=== PATIENT | female | born 1975 | race Caucasian/White ===

== ENCOUNTER 2016-09-22 13:07 | Emergency (ER) | payer MEDICARE, OTHER ==
[~2016-09-22 13:07] MED LIST: CLOZ100T PO; DIAZ10TA PO; LAMO200T3 PO; LORA10TA3 PO; VENL75CA PO
[2016-09-22 14:38] VITALS: BP 128/78
--- NOTE | 2016-09-22 15:35 | ED.ADGEN ---
Past History Past Medical History: Seizure, Other Past Surgical History: Other Alcohol Use: Occasionally Drug Use: None Social History Narrative: THC USE IN PAST NONE RECENTLY Adult General Chief Complaint Chief Complaint Seizure episode [facility] Patient is a 40-year-old female seizure disorder presents with witnessed seizure episode at [facility] earlier today. Patient's is taking Lamictal twice daily and is complaint with treatment. She had brief tonic-clonic seizure lasting up to to 3 minutes with postictal period resolving prior to ED arrival. Denies headache, change in vision, tongue laceration or urinary or bowel incontinence. No recent medications change, missed medications or illnesses. Patient states she has occasional breakthrough seizure brief few months. Patient 's neurologist is Dr. Oakley. Review of Systems Review of Systems ROS as per [facility] Allergies Allergies Allergies Coded Allergies Type Severity Reaction Last Updated Verified No Known Drug Allergies 07/26/14 No Physical Exam Physical Exam Constitutional: Well developed, well nourished, no acute distress, non-toxic appearance. HENT: Normocephalic, atraumatic, bilateral external ears normal, oropharynx moist, no oral exudates, nose normal. Eyes: PERRLA, EOMI, conjunctiva normal, no discharge. Neck: Normal range of motion, no tenderness. Cardiovascular:Heart rate regular rhythm, no murmur. Lungs & Thorax: Bilateral breath sounds clear to auscultation. Abdomen: Bowel sounds normal, soft, no tenderness. Skin: Warm, dry, no erythema, no rash. Back: No tenderness. Extremities: No tenderness. Neurologic: Alert and oriented X 3, normal motor function, normal sensory function, no focal deficits noted. Psychologic: Affect normal, judgement normal, mood normal. [] Current Patient Data Vital Signs Vital Signs Date Time Temp Pulse Resp B/P Pulse Ox O2 Delivery O2 Flow Rate FiO2 09/22/16 13:07 98.4 106 18 96 Room Air Lab Results Laboratory Tests Test 09/22/16 13:39 Glucose (Fingerstick) 171mg/dL (70-99) H EKG EKG [] Radiology/Procedures Radiology/Procedures [] Impressions: Breakthrough seizure Course & Med Decision Making Course & Med Decision Making Pertinent Labs and Imaging studies reviewed. (See chart for details) [Patient observed in the ED without complaint. Sendoff Lamictal order place. Patient to follow-up with Dr. Oakley per lab results and further management. Return precautions reviewed.] Final Impression Final Impression [1. Breakthrough seizure] Problems: Dragon Disclaimer Dragon Disclaimer This chart was dictated in whole or in part using Voice Recognition software in a busy, high-work load, and often noisy Emergency Department environment. It may contain unintended and wholly unrecognized errors or omissions. NOÉ DONG DO Sep 22, 2016 14:24
[2016-10-06] MEDS ORDERED: LAMO100T5 PO (13:24)
== END 2016-09-22 14:45 | disposition home or self-care (01) ==
LOC: ER 13:07
DX: G40.909 Epilepsy, unspecified, not intractable, without status epilepticus (principal)
CPT/HCPCS: 36415; 80175; 82947; 99283; 99284

== ENCOUNTER 2018-11-10 10:59 | Emergency (ER) | payer MEDICARE, OTHER ==
[~2018-11-10] VITALS: Ht 162.6 cm; Wt 83.9 kg
[~2018-11-10 10:59] MED LIST changes: +LAMO100T5 PO
[2018-11-10 11:33] LABS: BASO # 0.1 x10^3/uL (0.0-0.2); BASO % 1 % (0-3); EOS % 0 % (0-3); HEMOGLOBIN 14.6 g/dL (12.0-15.5); LYMPH # 2.2 x10^3/uL (1.0-4.8); LYMPH % 25 % (24-48); MEAN CORPUSCULAR HEMOGLOBIN 31 pg (25-35); MEAN CORPUSCULAR HGB CONC 35 g/dL (31-37); MEAN CORPUSCULAR VOLUME 90 fL (79-100); MONO # 0.7 x10^3/uL (0.0-1.1); MONO % 8 % (0-9); NEUT # 5.7 x10^3uL (1.8-7.7); NEUT % 67 % (31-73); PLATELET COUNT 230 x10^3/uL (140-400); RED BLOOD COUNT 4.69 x10^6/uL (3.50-5.40); WHITE BLOOD COUNT 8.5 x10^3/uL (4.0-11.0)
[2018-11-10 11:46] LABS: ALBUMIN 3.8 g/dL (3.4-5.0); ALBUMIN/GLOBULIN RATIO 1.2 (1.0-1.7); CREATININE 0.8 mg/dL (0.6-1.0); GFR 78.3; TOTAL BILIRUBIN 0.2 mg/dL (0.2-1.0); TOTAL PROTEIN 6.9 g/dL (6.4-8.2)
[2018-11-10 12:28] LABS: BARBITURATES NEG (NEG); BENZODIAZEPINES NEG (NEG); CANNABINOIDS NEG (NEG); COCAINE NEG (NEG); METHADONE NEG (NEG); OPIATES NEG (NEG); PHENCYCLIDINE NEG (NEG)
[2018-11-10 12:35] VITALS: BP 118/86
--- NOTE | 2018-11-10 12:42 | PHYS DOC ---
Past History Past Medical History: Anxiety, Seizure, Schizophrenia Past Surgical History: Other Smoking: Cigarettes, Less than 1pk/day Additional Smoking Information: 09/15 PPD Alcohol Use: None Drug Use: None Adult General Chief Complaint Chief Complaint: SEIZURE HPI HPI Patient is a 43 year old female who brought in by EMS because of his seizure. Patient states she has had history of seizure and taking Lamictal and was admitted in [facility] 2 weeks ago because of suicidal ideation and had increase of dose of Effexor and Neurontin without injury dose of Lamictal. Patient states since discharge from hospital she didn't feel good and today while she was at [facility], had a seizure like her previous episode of seizure that last about 1 minute. Patient states her last seizure was about 2 years ago. Patient denies missing his medication, using drugs or alcohol, lack of sleep, suicidal and homicidal ideation. Review of Systems Review of Systems Constitutional: Denies fever or chills [] Eyes: Denies change in visual acuity, redness, or eye pain [] HENT: Denies nasal congestion or sore throat [] Respiratory: Denies cough or shortness of breath [] Cardiovascular: No additional information not addressed in HPI [] GI: Denies abdominal pain, nausea, vomiting, bloody stools or diarrhea [] : Denies dysuria or hematuria [] Musculoskeletal: Denies back pain or joint pain [] Integument: Denies rash or skin lesions [] Neurologic: Denies headache, focal weakness or sensory changes [] Endocrine: Denies polyuria or polydipsia [] All other systems were reviewed and found to be within normal limits, except as documented in this note. Allergies Allergies Allergies Coded Allergies Type Severity Reaction Last Updated Verified No Known Drug Allergies 07/26/14 No Physical Exam Physical Exam Constitutional: Well developed, well nourished, mild distress, non-toxic appearance. [] HENT: Normocephalic, atraumatic, oropharynx moist, no oral exudates, nose normal. [] Eyes: PERRLA, EOMI, conjunctiva normal, no discharge. [] Neck: Normal range of motion, no tenderness, supple, no stridor. [] Cardiovascular:Heart rate regular rhythm, no murmur [] Lungs & Thorax: Bilateral breath sounds clear to auscultation [] Abdomen: Bowel sounds normal, soft, no tenderness, no masses, no pulsatile masses. [] Skin: Warm, dry, no erythema, no rash. [] Back: No tenderness, no CVA tenderness. [] Extremities: No tenderness, no cyanosis, no clubbing, ROM intact, no edema. [] Neurologic: Alert and oriented X 3, normal motor function, normal sensory function, no focal deficits noted. [] Psychologic: Affect depress, judgement normal, mood normal. [] Current Patient Data Vital Signs Vital Signs Date Time Temp Pulse Resp B/P (MAP) Pulse Ox O2 Delivery O2 Flow Rate FiO2 11/10/18 11:06 98.0 78 20 96 Room Air Lab Results Laboratory Tests Test 11/10/18 11:19 White Blood Count 8.5 x10^3/uL (4.0-11.0) Red Blood Count 4.69 x10^6/uL (3.50-5.40) Hemoglobin 14.6 g/dL (12.0-15.5) Hematocrit 42.0 % (36.0-47.0) Mean Corpuscular Volume 90 fL (79-100) Mean Corpuscular Hemoglobin 31 pg (25-35) Mean Corpuscular Hemoglobin Concent 35 g/dL (31-37) Red Cell Distribution Width 13.0 % (11.5-14.5) Platelet Count 230 x10^3/uL (140-400) Neutrophils (%) (Auto) 67 % (31-73) Lymphocytes (%) (Auto) 25 % (24-48) Monocytes (%) (Auto) 8 % (0-9) Eosinophils (%) (Auto) 0 % (0-3) Basophils (%) (Auto) 1 % (0-3) Neutrophils # (Auto) 5.7 x10^3uL (1.8-7.7) Lymphocytes # (Auto) 2.2 x10^3/uL (1.0-4.8) Monocytes # (Auto) 0.7 x10^3/uL (0.0-1.1) Eosinophils # (Auto) 0.0 x10^3/uL (0.0-0.7) Basophils # (Auto) 0.1 x10^3/uL (0.0-0.2) Sodium Level 141 mmol/L (136-145) Potassium Level 4.0 mmol/L (3.5-5.1) Chloride Level 104 mmol/L (98-107) Carbon Dioxide Level 30 mmol/L (21-32) Anion Gap 7 (6-14) Blood Urea Nitrogen 14 mg/dL (7-20) Creatinine 0.8 mg/dL (0.6-1.0) Estimated GFR (Cockcroft-Gault) 78.3 BUN/Creatinine Ratio 18 (6-20) Glucose Level 105 mg/dL (70-99) H Calcium Level 9.0 mg/dL (8.5-10.1) Total Bilirubin 0.2 mg/dL (0.2-1.0) Aspartate Amino Transferase (AST) 21 U/L (15-37) Alanine Aminotransferase (ALT) 39 U/L (14-59) Alkaline Phosphatase 75 U/L (46-116) Total Protein 6.9 g/dL (6.4-8.2) Albumin 3.8 g/dL (3.4-5.0) Albumin/Globulin Ratio 1.2 (1.0-1.7) EKG EKG [] Radiology/Procedures Radiology/Procedures [] Course & Med Decision Making Course & Med Decision Making Pertinent Labs studies reviewed. (See chart for details) Evaluation of patient in ER showed 43-year-old female patient with history of seizure brought in by EMS because of his seizure that happened at [facility] this morning. Last episode of seizure was about 2 years ago. Patient had unremarkable physical exam and labs. Patient instructed to follow-up with Dr. Hartman her neurologist in one or 2 days for adjustment of doses of her medication. Dragon Disclaimer Dragon Disclaimer This electronic medical record was generated, in whole or in part, using a voice recognition dictation system. Departure Departure: Impression: Primary Impression: Breakthrough seizure Additional Impressions: Seizure disorder Tobacco abuse Tobacco abuse counseling Disposition: 01 HOME, SELF-CARE (at 1240) Condition: STABLE Referrals: ROSY HARTMAN MD (PCP) Patient Instructions: Seizure, Adult, Smoking Cessation, Tips For Success Additional Instructions: Follow-up with Dr. Hartman in one or 2 days Continue current medication Return to ER if not getting better Problem Qualifiers IVON HOOKS MD Nov 10, 2018 12:42
[2018-11-10 14:31] LABS: AMPHETAMINE/METHAMPHETAMINE NEG (NEG)
[2018-11-10 15:03] LABS: BILIRUBIN,URINE NEG (NEG); CLARITY,URINE CLEAR; COLOR,URINE YELLOW; GLUCOSE,URINE NEG (NEG)
[2018-11-10 15:04] LABS: BACTERIA,URINE FEW /HPF (0-FEW); NITRITE,URINE NEG (NEG); RBC,URINE 0 /HPF (0-2); SQUAMOUS EPITHELIAL CELL,UR MOD /LPF; UROBILINOGEN,URINE 0.2 mg/dL (0.2 mg/dL); WBC,URINE 0 /HPF (0-4)
== END 2018-11-10 12:43 | disposition home or self-care (01) ==
LOC: ER 10:59
DX: G40.909 Epilepsy, unspecified, not intractable, without status epilepticus (principal); F41.9 Anxiety disorder, unspecified; F20.9 Schizophrenia, unspecified; F17.210 Nicotine dependence, cigarettes, uncomplicated; Z71.6 Tobacco abuse counseling
CPT/HCPCS: 36415; 80053; 80307; 81001; 85025; 99283

== ENCOUNTER 2019-02-25 00:05 | Emergency (ER) | payer MEDICARE, OTHER ==
[~2019-02-25] VITALS: Ht 162.6 cm; Wt 76.1 kg
--- NOTE | 2019-02-25 00:14 | PHYS DOC ---
Past History Past Medical History: Anxiety, Seizure, Schizophrenia Past Surgical History: Other Smoking: Cigarettes, Less than 1pk/day Alcohol Use: None Drug Use: None Adult General HPI HPI Patient is a 43-year-old female who presents to the emergency department via EMS. She states she was on a bus, [place], when she had 3 seizures [id number], did regain consciousness between each episode. Along the seizure lasted about a minute, the shortest about 20 seconds. EMS reported the patient was somewhat disoriented upon their arrival but has had improving during transportation. The patient states that she does have a seizure history and takes Lamictal, she states she has a history of schizoaffective disorder and depression and anxiety, and does admit to being under a lot of stress recently. She states that she is uncertain if she has true epilepsy or pseudoseizures. She denies any numbness, vision changes, headache, dizziness or lightheadedness. She did not bite her tongue or lose urinary continence. She did not fall or otherwise injure herself. There are no alleviating or exacerbating factors to her symptoms. Review of Systems Review of Systems Constitutional: Denies fever or chills [] Eyes: Denies change in visual acuity, redness, or eye pain [] HENT: Denies nasal congestion or sore throat [] Respiratory: Denies cough or shortness of breath [] Cardiovascular: The patient denies any shortness of breath, chest pain, palpitations, or orthopnea [] GI: Denies abdominal pain, nausea, vomiting, bloody stools or diarrhea [] : Denies dysuria or hematuria [] Musculoskeletal: Denies back pain or joint pain [] Integument: Denies rash or skin lesions [] Neurologic: Denies headache, focal weakness or sensory changes [] Endocrine: Denies polyuria or polydipsia [] All other systems were reviewed and found to be within normal limits, except as documented in this note. Current Medications Current Medications Current Medications Medications (Trade) Dose Ordered Sig/Dillon Start Time Stop Time Status Last Admin Dose Admin Lorazepam (Ativan Inj) 0.5 mg 1X ONCE 02/25/19 00:15 02/25/19 00:16 UNV Allergies Allergies Allergies Coded Allergies Type Severity Reaction Last Updated Verified No Known Drug Allergies 07/26/14 No Physical Exam Physical Exam PHYSICAL EXAM: CONSTITUTIONAL: Well developed, well nourished HEAD: normocephalic, atraumatic EENT: PERRL, EOMI. Conjunctivae normal color, sclerae non-icteric; moist mucous membranes. NECK: Supple, non-tender; no meningismus. LUNGS: Lungs CTA, breathing even and unlabored. Normal air movement. HEART: Regular rate and rhythm, no murmur CHEST: No deformity; non-tender ABDOMEN: The abdomen is soft, and non-tender, no masses or bruits. EXTREM: Normal ROM; no deformity, no calf tenderness. Normal pulses palpable in all extremities. There is no pedal edema. SKIN: No rash; no diaphoresis NEURO: Alert; normal speech and cognition; CN's grossly intact; strength grossly intact without focal deficit. BACK: No CVA TTP. PSYCHIATRIC: The patient exhibits a flat affect. Current Patient Data Lab Results Laboratory Tests Test 02/25/19 00:39 02/25/19 00:40 Glucose (Fingerstick) 147 mg/dL White Blood Count 7.6 x10^3/uL Red Blood Count 4.40 x10^6/uL Hemoglobin 13.6 g/dL Hematocrit 39.6 % Mean Corpuscular Volume 90 fL Mean Corpuscular Hemoglobin 31 pg Mean Corpuscular Hemoglobin Concent 34 g/dL Red Cell Distribution Width 12.7 % Platelet Count 248 x10^3/uL Neutrophils (%) (Auto) 69 % Lymphocytes (%) (Auto) 24 % Monocytes (%) (Auto) 7 % Eosinophils (%) (Auto) 0 % Basophils (%) (Auto) 1 % Neutrophils # (Auto) 5.3 x10^3uL Lymphocytes # (Auto) 1.8 x10^3/uL Monocytes # (Auto) 0.5 x10^3/uL Eosinophils # (Auto) 0.0 x10^3/uL Basophils # (Auto) 0.0 x10^3/uL Sodium Level 140 mmol/L Potassium Level 3.4 mmol/L Chloride Level 103 mmol/L Carbon Dioxide Level 26 mmol/L Anion Gap 11 Blood Urea Nitrogen 13 mg/dL Creatinine 0.9 mg/dL Estimated GFR (Cockcroft-Gault) 68.3 Glucose Level 154 mg/dL Lactic Acid Level 2.4 mmol/L Calcium Level 8.7 mg/dL Magnesium Level 1.8 mg/dL Current Medications Medications (Trade) Dose Ordered Sig/Dillon Route PRN Reason Start Time Stop Time Status Last Admin Dose Admin Lorazepam (Ativan Inj) 0.5 mg 1X ONCE IV 02/25/19 00:15 02/25/19 00:58 DC 02/25/19 00:47 EKG EKG [] Radiology/Procedures Radiology/Procedures [] Course & Med Decision Making Course & Med Decision Making Pertinent Lab studies reviewed. (See chart for details) []The patient's condition remained stable. I did discuss the patient's case with her neurologist Dr. Hartman, who does not recall the patient exactly or if she has epilepsy or pseudoseizures, but would like to see the patient in the office later this morning. I discussed importance of close follow-up with the patient and return precautions in detail. Dragon Disclaimer Dragon Disclaimer This electronic medical record was generated, in whole or in part, using a voice recognition dictation system. Departure Departure: Impression: Primary Impression: Seizure-like activity Disposition: HOME, SELF-CARE Condition: STABLE Referrals: ROSY HARTMAN MD (PCP) Patient Instructions: Nonepileptic Seizures, Seizure, Adult MILTON MILLER MD Feb 25, 2019 00:13
[2019-02-25 01:25] LABS: BASO % 1 % (0-3); EOS % 0 % (0-3); HEMATOCRIT 39.6 % (36.0-47.0); HEMOGLOBIN 13.6 g/dL (12.0-15.5); LYMPH # 1.8 x10^3/uL (1.0-4.8); LYMPH % 24 % (24-48); MEAN CORPUSCULAR HEMOGLOBIN 31 pg (25-35); MEAN CORPUSCULAR HGB CONC 34 g/dL (31-37); MEAN CORPUSCULAR VOLUME 90 fL (79-100); MONO # 0.5 x10^3/uL (0.0-1.1); MONO % 7 % (0-9); NEUT # 5.3 x10^3uL (1.8-7.7); NEUT % 69 % (31-73); PLATELET COUNT 248 x10^3/uL (140-400); RED CELL DISTRIBUTION WIDTH 12.7 % (11.5-14.5); WHITE BLOOD COUNT 7.6 x10^3/uL (4.0-11.0)
[2019-02-25 01:30] VITALS: BP 128/71
[2019-02-25 01:33] LABS: CALCIUM 8.7 mg/dL (8.5-10.1); CREATININE 0.9 mg/dL (0.6-1.0); GFR 68.3; MAGNESIUM 1.8 mg/dL (1.8-2.4); POTASSIUM 3.4 mmol/L (3.5-5.1)
[2019-02-25] MEDS ORDERED: POTASSIUM CHLORIDE 20 MEQ TABLET.ER. PO ONE (01:45)
== END 2019-02-25 01:55 | disposition home or self-care (01) ==
LOC: ER 00:05
DX: R56.9 Unspecified convulsions (principal); F41.9 Anxiety disorder, unspecified; F20.9 Schizophrenia, unspecified; F17.210 Nicotine dependence, cigarettes, uncomplicated
CPT/HCPCS: 36415; 80048; 82947; 83605; 83735; 85025; 96374; 99284; J2060

== ENCOUNTER 2019-03-11 12:39 | Emergency (ER) | payer MEDICARE, OTHER ==
[~2019-03-11] VITALS: Ht 162.6 cm; Wt 87.5 kg
[2019-03-11 13:19] LABS: BASO # 0.1 x10^3/uL (0.0-0.2); BASO % 1 % (0-3); EOS % 0 % (0-3); HEMATOCRIT 40.4 % (36.0-47.0); HEMOGLOBIN 13.8 g/dL (12.0-15.5); LYMPH # 1.5 x10^3/uL (1.0-4.8); LYMPH % 18 % (24-48); MEAN CORPUSCULAR HEMOGLOBIN 31 pg (25-35); MEAN CORPUSCULAR HGB CONC 34 g/dL (31-37); MEAN CORPUSCULAR VOLUME 90 fL (79-100); MONO # 0.4 x10^3/uL (0.0-1.1); MONO % 5 % (0-9); NEUT # 6.1 x10^3uL (1.8-7.7); NEUT % 76 % (31-73); PLATELET COUNT 231 x10^3/uL (140-400); RED BLOOD COUNT 4.49 x10^6/uL (3.50-5.40); RED CELL DISTRIBUTION WIDTH 12.9 % (11.5-14.5); WHITE BLOOD COUNT 8.1 x10^3/uL (4.0-11.0)
--- NOTE | 2019-03-11 13:29 | PHYS DOC ---
Past History Past Medical History: Anxiety, Depression, Seizure, Schizophrenia, Other Past Surgical History: Other Smoking: Cigarettes, Less than 1pk/day Alcohol Use: None Drug Use: None Adult General Chief Complaint Chief Complaint: SEIZURE HPI HPI 43-year-old female presents via EMS with seizure. The patient was attending a day program at the [facility]. They're getting ready for lunch when she began to get a metallic taste in her mouth and change in her vision. She laid down and that is less she remembers. She then remembers waking up with several people standing around her. She was told that she had 2 generalized seizures lasting about 15 seconds each while she was unconscious. She had a postictal period. The patient is on the lamotrigine for her seizures. She is also on several psychiatric medications. They have been changing her psychiatric medications over the last several weeks. Her last seizure was 2.5 weeks ago. No seizure medication changes were made at that time. Her neurologist is Dr. Hartman. She denies fever or chills. Review of Systems Review of Systems Constitutional: Denies fever or chills [] Eyes: Denies change in visual acuity, redness, or eye pain [] HENT: Denies nasal congestion or sore throat [] Respiratory: Denies cough or shortness of breath [] Cardiovascular: No additional information not addressed in HPI [] GI: Denies abdominal pain, nausea, vomiting, bloody stools or diarrhea [] : Denies dysuria or hematuria [] Musculoskeletal: Denies back pain or joint pain [] Integument: Denies rash or skin lesions [] Neurologic: Seizure. Denies headache, focal weakness or sensory changes [] Endocrine: Denies polyuria or polydipsia [] All other systems were reviewed and found to be within normal limits, except as documented in this note. Allergies Allergies Allergies Coded Allergies Type Severity Reaction Last Updated Verified No Known Drug Allergies 07/26/14 No Physical Exam Physical Exam Constitutional: Well developed, well nourished, no acute distress, non-toxic appearance. [] HENT: Normocephalic, atraumatic, bilateral external ears normal, oropharynx moist, no oral exudates, nose normal. [] Eyes: PERRLA, EOMI, conjunctiva normal, no discharge. [] Neck: Normal range of motion, no tenderness, supple, no stridor. [] Cardiovascular:Heart rate regular rhythm, no murmur [] Lungs & Thorax: Bilateral breath sounds clear to auscultation [] Abdomen: Bowel sounds normal, soft, no tenderness, no masses, no pulsatile masses. [] Skin: Warm, dry, no erythema, no rash. [] Back: No tenderness, no CVA tenderness. [] Extremities: No tenderness, no cyanosis, no clubbing, ROM intact, no edema. [] Neurologic: Alert and oriented X 3, normal motor function, normal sensory function, no focal deficits noted. [] Psychologic: Affect normal, judgement normal, mood normal. [] Current Patient Data Vital Signs Vital Signs Date Time Temp Pulse Resp B/P (MAP) Pulse Ox O2 Delivery O2 Flow Rate FiO2 03/11/19 13:21 98.6 103 16 143/81 (101) 95 Room Air EKG EKG [] Radiology/Procedures Radiology/Procedures [] Course & Med Decision Making Course & Med Decision Making Pertinent Labs and Imaging studies reviewed. (See chart for details) The patient's labs are unremarkable. Her urinalysis is unremarkable. Her urine drug screen is negative. I spoke with Dr. Hartman, her neurologist and he would like the patient to increase her Motrin she took 200 mg twice a day from the current 300 mg a day. She is stable for discharge at this time. [] Dragon Disclaimer Dragon Disclaimer This electronic medical record was generated, in whole or in part, using a voice recognition dictation system. Departure Departure: Impression: Primary Impression: Seizure Disposition: 01 HOME, SELF-CARE Condition: STABLE Referrals: ROSY HARTMAN MD (PCP) Patient Instructions: Seizure, Adult, [id number] Additional Instructions: Please increase your lamotrigine to 200 mg in the morning and 200 mg at night. Please call Dr. Hartman's office for follow-up appointment. [phone] NOÉ ROTHMAN DO Mar 11, 2019 13:29
[2019-03-11 13:30] LABS: ALBUMIN 3.6 g/dL (3.4-5.0); ALBUMIN/GLOBULIN RATIO 1.2 (1.0-1.7); CALCIUM 8.9 mg/dL (8.5-10.1); CREATININE 0.7 mg/dL (0.6-1.0); GFR 91.3; POTASSIUM 3.8 mmol/L (3.5-5.1); TOTAL BILIRUBIN 0.4 mg/dL (0.2-1.0); TOTAL PROTEIN 6.7 g/dL (6.4-8.2)
[2019-03-11 14:05] LABS: BARBITURATES NEG (NEG); BENZODIAZEPINES NEG (NEG); CANNABINOIDS NEG (NEG); COCAINE NEG (NEG); METHADONE NEG (NEG); OPIATES NEG (NEG); PHENCYCLIDINE NEG (NEG)
[2019-03-11 14:06] LABS: BACTERIA,URINE 0 /HPF (0-FEW); BILIRUBIN,URINE NEG (NEG); CLARITY,URINE CLEAR; COLOR,URINE YELLOW; GLUCOSE,URINE NEG (NEG); NITRITE,URINE NEG (NEG); RBC,URINE 0 /HPF (0-2); SQUAMOUS EPITHELIAL CELL,UR FEW /LPF; UROBILINOGEN,URINE 0.2 mg/dL (0.2 mg/dL); WBC,URINE 0 /HPF (0-4)
[2019-03-11 14:07] LABS: AMPHETAMINE/METHAMPHETAMINE NEG (NEG)
[2019-03-11 14:24] VITALS: BP 132/58
== END 2019-03-11 15:23 | disposition home or self-care (01) ==
LOC: ER 12:39
DX: G40.89 Other seizures (principal); F41.9 Anxiety disorder, unspecified; F32.9 Major depressive disorder, single episode, unspecified; F20.9 Schizophrenia, unspecified; F17.210 Nicotine dependence, cigarettes, uncomplicated
CPT/HCPCS: 36415; 80053; 80175; 80307; 81001; 85025; 99284

== ENCOUNTER 2020-08-17 11:23 | Emergency (ER) | payer MEDICARE, OTHER ==
[~2020-08-17] VITALS: Ht 163.8 cm; Wt 87.7 kg
--- NOTE | 2020-08-17 11:29 | PHYS DOC ---
Past History Past Medical History: Anxiety, Depression, Seizure, Schizophrenia, Other Past Surgical History: Other Smoking: Cigarettes, Less than 1pk/day Alcohol Use: None Drug Use: None Adult General Chief Complaint Chief Complaint: SEIZURE HPI HPI Patient is a 44-year-old female presenting via EMS for witnessed seizure. She has a history of seizures. Patient was at [facility] in a seated position when she was observed having a generalized tonic-clonic seizure which is typical for her. Seizure lasted less than 2 minutes in duration, patient did not fall nor hit her head. EMS was subsequently called by bystanders. On arrival, patient appeared to be in postictal state but was otherwise hemodynamically stable and so, she was transported to our facility for evaluation. On arrival to our facility, patient in no acute distress, denies any pain, remains postictal but per EMS report has been continuingly improving since retrieved fr om the scene. Patient reports she is established in outpatient setting with neurologist and currently on Lamictal, states her last seizure was February 2019. Denies any recent infectious processes but does admit she has been noncompliant with home medications. She states she has been out of her antipsychotic for the last week and a half, it is a controlled antipsychotic and she has had difficulties coordinating with her primary care physician refills due to need for laboratory analysis etc. Patient states she has likely been noncompliant with seizure medication as a result. Patient reports having lab work performed earlier today, is set to get her antipsychotic from pharmacy tomorrow Review of Systems Review of Systems Fourteen body systems of review of systems have been reviewed. See HPI for pertinent positives and negative responses, other maldonado all other systems are negative, non-pertinent or non-contributory Allergies Allergies Allergies Coded Allergies Type Severity Reaction Last Updated Verified No Known Drug Allergies 07/26/14 No Physical Exam Physical Exam Constitutional: Well developed, well nourished, no acute distress, non-toxic appearance. HENT: Normocephalic, atraumatic, bilateral external ears normal, oropharynx moist, no oral exudates, nose normal. No oropharyngeal trauma/tongue lacerations Eyes: PERRLA, EOMI, conjunctiva normal, no discharge. Neck: Normal range of motion, no midline tenderness, supple, no stridor. Cardiovascular: Heart rate regular, sinus rhythm, no murmurs rubs or gallops Lungs & Thorax: Bilateral breath sounds clear to auscultation Abdomen: Bowel sounds normal, soft, no tenderness, no masses, no pulsatile masses. Nonsurgical abdomen, no peritoneal signs Skin: Warm, dry, no erythema, no rash. Back: No tenderness, no CVA tenderness. Extremities: No tenderness, no cyanosis, no clubbing, ROM intact, no edema. Neurologic: Alert and oriented X 3, grossly normal motor & sensory function, no focal deficits noted. Psychologic: Affect normal, judgement normal, mood normal. Current Patient Data Vital Signs Vital Signs Date Time Temp Pulse Resp B/P (MAP) Pulse Ox O2 Delivery O2 Flow Rate FiO2 08/17/20 12:34 89 16 122/77 (92) 94 Room Air 08/17/20 11:33 98.2 Lab Results Laboratory Tests Test 08/17/20 11:27 08/17/20 12:26 Glucose (Fingerstick) 87 mg/dL (70-99) 94 mg/dL (70-99) EKG EKG EKG ordered and interpreted by myself at 1146 hrs. as sinus rhythm at 87 bpm, prolonged QTC at 476 otherwise unremarkable intervals, no axis deviation, right bundle branch block present, no other obvious ischemic findings, no STEMI Radiology/Procedures Radiology/Procedures [] Heart Score HEART Score for Chest Pain: HEART Score for Chest Pain Response (Comments) Value History Slighlty/Non-Suspicious 0 ECG Normal 0 Age < 45 0 Risk Factors 1 or 2 Risk Factors 1 Total 1 Risk Factors: Risk Factors: DM, Current or recent (<one month) smoker, HTN, HLP, family history of CAD, obesity. Risk Scores: Risk Factors: DM, Current or recent (<one month) smoker, HTN, HLP, family his tory of CAD, obesity. Course & Med Decision Making Course & Med Decision Making Patient with known history of seizure presents for classic seizure for her. Witnessed event, no indication for any advanced diagnostic work-up and/or imaging Patient arrived to our facility postictal but continually improved and was at baseline for greater than 60 minutes prior to ER departure. She is ambulatory and tolerating p.o. intake before departure Patient has good access to care, states she is picking up her antipsychotic tomorrow. She has enough Lamictal at home to last her until outpatient follow- up. She is covered in outpatient setting by primary care physician and Dr. Hartman. She states she can be seen by both within the next week or 2 which I feel is appropriate. Strict return precautions were discussed with good understanding by patient, all questions and concerns addressed prior to ER departure in improved condition Susan Disclaimer Susan Disclaimer This electronic medical record was generated, in whole or in part, using a voice recognition dictation system. Departure Departure: Impression: Primary Impression: Seizure disorder Disposition: 01 DC HOME SELF CARE/HOMELESS Condition: IMPROVED Referrals: ROSY HARTMAN MD (PCP) Patient Instructions: Seizure, Adult Additional Instructions: As discussed prior to ER departure, please call your primary care physician to schedule outpatient follow-up in upcoming 3 to 10 days after ER departure As discussed today, there were no emergent and/or surgical findings present based on our work-up. With that said this may be an acute presentation of more concerning pathology and so, close outpatient follow-up is advised I would also discuss your recent seizure with your outpatient neurologist. I would continue your regular dose of Lamictal as scheduled. Please discuss need for medication changes with your neurologist in outpatient setting If any concerning signs or symptoms present prior to outpatient follow-up please do not hesitate to come back for repeat evaluation It was a pleasure to take care of you and I wish you the best going forward AMRCY VENEGAS DO Aug 17, 2020 11:29
[2020-08-17] MEDS ORDERED: DICY10CA53 (11:58)
[2020-08-17] MEDS ORDERED: GABA100C6 (11:58)
[2020-08-17] MEDS ORDERED: METF500T16 (11:58)
[2020-08-17] MEDS ORDERED: HYDR10TA2 (11:58)
[2020-08-17 12:34] VITALS: BP 122/77
--- NOTE | 2020-08-17 16:50 | EKG ---
[facility] ED [facility] [address] [place] [id number] Test Date: 2020-08-17 Test Time: 11:40:43 Pat Name: SHANDA NI Department: Room: Gender: F Auto Garage Mechanic: : 1975 Requested By: MARCY VENEGAS Order Number: [id number] Reading MD: Measurements Intervals [place] Rate: 87 P: 33 FL: 122 QRS: 27 QRSD: 100 T: 28 QT: 390 QTc: 476 Interpretive Statements SINUS RHYTHM LEFT ATRIAL ABNORMALITY INCOMPLETE RIGHT BUNDLE BRANCH BLOCK PROLONGED QT ABNORMAL ECG RI6.02 No previous ECG available for comparison
== END 2020-08-17 13:03 | disposition home or self-care (01) ==
LOC: ER 11:23
DX: G40.909 Epilepsy, unspecified, not intractable, without status epilepticus (principal); F41.9 Anxiety disorder, unspecified; F32.9 Major depressive disorder, single episode, unspecified; F20.9 Schizophrenia, unspecified; F17.210 Nicotine dependence, cigarettes, uncomplicated
CPT/HCPCS: 82947; 93005; 99284

== ENCOUNTER 2020-11-05 13:47 | Emergency (ER) | payer MEDICARE, OTHER ==
[~2020-11-05] VITALS: Ht 163.8 cm; Wt 87.7 kg
[~2020-11-05 13:47] MED LIST changes: +DICY10CA53; +GABA100C6; +HYDR10TA2; +METF500T16
[2020-11-05 14:15] LABS: BASO % 1 % (0-3); EOS % 0 % (0-3); HEMATOCRIT 40.5 % (36.0-47.0); HEMOGLOBIN 13.7 g/dL (12.0-15.5); LYMPH # 1.6 x10^3/uL (1.0-4.8); LYMPH % 28 % (24-48); MEAN CORPUSCULAR HEMOGLOBIN 31 pg (25-35); MEAN CORPUSCULAR HGB CONC 34 g/dL (31-37); MEAN CORPUSCULAR VOLUME 90 fL (79-100); MONO # 0.4 x10^3/uL (0.0-1.1); MONO % 6 % (0-9); NEUT # 3.8 x10^3uL (1.8-7.7); NEUT % 66 % (31-73); PLATELET COUNT 231 x10^3/uL (140-400); RED CELL DISTRIBUTION WIDTH 13.1 % (11.5-14.5); WHITE BLOOD COUNT 5.9 x10^3/uL (4.0-11.0)
[2020-11-05 14:17] LABS: PREG TEST PT QUAL NEGATIVE (NEG)
[2020-11-05 14:34] LABS: CALCIUM 8.7 mg/dL (8.5-10.1); CREATININE 0.8 mg/dL (0.6-1.0); GFR 77.6; POTASSIUM 3.7 mmol/L (3.5-5.1)
--- NOTE | 2020-11-05 14:34 | EKG ---
[address] [address] Test Date: 2020-11-05 Test Time: 14:17:02 Pat Name: SHANDA NI Department: Room: Gender: F Finance Broker: ANA : 1975 Requested By: SHARMIN KAISER Order Number: [id number] Reading MD: Measurements Intervals [place] Rate: 87 P: 30 DC: 130 QRS: 31 QRSD: 106 T: 28 QT: 392 QTc: 478 Interpretive Statements SINUS RHYTHM INCOMPLETE RIGHT BUNDLE BRANCH BLOCK PROLONGED QT NO SPECIFIC ECG ABNORMALITIES RI6.02 No previous ECG available for comparison
[2020-11-05] MEDS ORDERED: LAMO200T3 PO (15:51)
--- NOTE | 2020-11-05 15:51 | PHYS DOC ---
Past History Past Medical History: Bipolar, Diabetes, Seizure, Schizophrenia Past Surgical History: Other Smoking: Cigarettes, Less than 1pk/day Alcohol Use: None Drug Use: None Adult General Chief Complaint Chief Complaint: SEIZURE HPI HPI Patient is a 45-year-old female with a known past medical history of epilepsy presenting emergency department with new onset of seizure. Patient states that she has been on Lamictal for her entire life but she has had a few breakthrough seizures most recent were approximately 3 months ago. States she is she has not had a follow-up with a neurologist or change in her medications for many years. Patient states that today she was sitting on the couch when she noticed a funny sensation of the left tongue and is starting to feel lightheaded and then woke up on the ground. Since that time generalized sensation of fatigue and left- sided headache. No known tongue biting, bowel or bladder incontinence. Denies any fevers, chills, nausea vomiting or recent sick contacts. Review of Systems Review of Systems Constitutional: Denies fever or chills [] Eyes: Denies change in visual acuity, redness, or eye pain [] HENT: Denies nasal congestion or sore throat [] Respiratory: Denies cough or shortness of breath [] Cardiovascular: No additional information not addressed in HPI [] GI: Denies abdominal pain, nausea, vomiting, bloody stools or diarrhea [] : Denies dysuria or hematuria [] Musculoskeletal: Denies back pain or joint pain [] Integument: Denies rash or skin lesions [] Neurologic: Denies headache, focal weakness or sensory changes [] Endocrine: Denies polyuria or polydipsia [] All other systems were reviewed and found to be within normal limits, except as documented in this note. Current Medications Current Medications Current Medications Medications (Trade) Dose Ordered Sig/Dillon Start Time Stop Time Status Last Admin Dose Admin Levetiracetam 1000 mg/Sodium Chloride 100 ml @ 400 mls/hr 1X ONCE 11/05/20 14:45 11/05/20 14:59 DC 11/05/20 15:01 400 MLS/HR Allergies Allergies Allergies Coded Allergies Type Severity Reaction Last Updated Verified No Known Drug Allergies 08/17/20 No Physical Exam Physical Exam Constitutional: Well developed, well nourished, no acute distress, non-toxic appearance. [] HENT: Normocephalic, atraumatic, bilateral external ears normal, oropharynx moist, no oral exudates, nose normal. [] Eyes: PERRLA, EOMI, conjunctiva normal, no discharge. [] Neck: Normal range of motion, no tenderness, supple, no stridor. [] Cardiovascular:Heart rate regular rhythm, no murmur [] Lungs & Thorax: Bilateral breath sounds clear to auscultation [] Abdomen: Bowel sounds normal, soft, no tenderness, no masses, no pulsatile masses. [] Skin: Warm, dry, no erythema, no rash. [] Back: No tenderness, no CVA tenderness. [] Extremities: No tenderness, no cyanosis, no clubbing, ROM intact, no edema. [] Neurologic: Alert and oriented X 3, normal motor function, normal sensory func tion, no focal deficits noted. [] Psychologic: Affect normal, judgement normal, mood normal. [] Current Patient Data Vital Signs Vital Signs Date Time Temp Pulse Resp B/P (MAP) Pulse Ox O2 Delivery O2 Flow Rate FiO2 11/05/20 13:51 99.0 96 18 152/86 (108) 96 Room Air Lab Results Laboratory Tests Test 11/05/20 13:55 White Blood Count 5.9 x10^3/uL (4.0-11.0) Red Blood Count 4.50 x10^6/uL (3.50-5.40) Hemoglobin 13.7 g/dL (12.0-15.5) Hematocrit 40.5 % (36.0-47.0) Mean Corpuscular Volume 90 fL (79-100) Mean Corpuscular Hemoglobin 31 pg (25-35) Mean Corpuscular Hemoglobin Concent 34 g/dL (31-37) Red Cell Distribution Width 13.1 % (11.5-14.5) Platelet Count 231 x10^3/uL (140-400) Neutrophils (%) (Auto) 66 % (31-73) Lymphocytes (%) (Auto) 28 % (24-48) Monocytes (%) (Auto) 6 % (0-9) Eosinophils (%) (Auto) 0 % (0-3) Basophils (%) (Auto) 1 % (0-3) Neutrophils # (Auto) 3.8 x10^3uL (1.8-7.7) Lymphocytes # (Auto) 1.6 x10^3/uL (1.0-4.8) Monocytes # (Auto) 0.4 x10^3/uL (0.0-1.1) Eosinophils # (Auto) 0.0 x10^3/uL (0.0-0.7) Basophils # (Auto) 0.0 x10^3/uL (0.0-0.2) Sodium Level 141 mmol/L (136-145) Potassium Level 3.7 mmol/L (3.5-5.1) Chloride Level 105 mmol/L (98-107) Carbon Dioxide Level 24 mmol/L (21-32) Anion Gap 12 (6-14) Blood Urea Nitrogen 18 mg/dL (7-20) Creatinine 0.8 mg/dL (0.6-1.0) Estimated GFR (Cockcroft-Gault) 77.6 Glucose Level 215 mg/dL (70-99) H Calcium Level 8.7 mg/dL (8.5-10.1) Serum Test, Qualitative Negative (NEG) EKG EKG [] Radiology/Procedures Radiology/Procedures [] Heart Score Risk Factors: Risk Factors: DM, Current or recent (<one month) smoker, HTN, HLP, family history of CAD, obesity. Risk Scores: Risk Factors: DM, Current or recent (<one month) smoker, HTN, HLP, family history of CAD, obesity. Course & Med Decision Making Course & Med Decision Making Pertinent Labs and Imaging studies reviewed. (See chart for details) 45F presenting to the emergency department for what appears to be a breakthrough seizure. No evidence of acute or trauma. Seizure was witnessed and tonic- clonic lasting less than 5 minutes with no evidence of fall or significant head injury. Labs obtained without any evidence of significant underlying electrolyte derangements. I discussed the case with Dr. Hartman who is recommending that we increase the patient's dose of Lamictal and is planning to have the patient call tomorrow for a follow-up appointment to determine further medication changes Dragon Disclaimer Dragon Disclaimer This electronic medical record was generated, in whole or in part, using a voice recognition dictation system. Departure Departure: Impression: Primary Impression: Breakthrough seizure Disposition: 01 DC HOME SELF CARE/HOMELESS Condition: GOOD Referrals: ROSY HARTMAN MD (PCP) Patient Instructions: Seizure Disorder, Child, Generalized Tonic-Clonic Additional Instructions: EMERGENCY DEPARTMENT GENERAL DISCHARGE INSTRUCTIONS Thank you for coming to [facility] Emergency Department (ED) today and trusting us with you care. We trust that you had a positive experience in our Emergency Department. If you wish to speak to the department management, you may call the Director at [phone]. YOUR FOLLOW UP INSTRUCTIONS ARE FOLLOWS: 1. Do you have a private Doctor? If you do not have a private doctor, please ask for a resource list of physicians or clinics that may be able to assist you with follow up care. 2. The Emergency Physicain has interpreted your x-rays. The X-Ray specialist will also review them. If there is a change in the findings, you will be notified in 48 hours when at all possible. 3. A lab test or culture has been done, your results will be reviewed and you will be notified if you need a change in treatment. ADDITIONAL INSTRUCTIONS AND INFORMATION: 1. Your care today has been supervised by a physician who is specially trained in emergency care. Many problems require more than one evaluation for a complete diagnosis and treatment. We recommend that you schedule your follow up appointment as recommended to ensure complete treatment of you illness or injury. If you are unable to obtain follow up care and continue to have a problem, or if your condition worsens, we recommend that you return to the ED. 2. We are not able to safely determine your condition over the phone nor are we able to give sound medical advice over the phone. For these safety reasons, if you call for medical advice we will ask you to come to the ED for further evaluation. 3. If you have any questions regarding these discharge instructions please call the ED at [phone]. SAFETY INFORMATION: In the interest of safety, wellness, and injury prevention; we encourage you to wear your sealbelt, if you smoke; quite smoking, and we encourage family to use a protective helmet for bicycling and other sporting events that present an increased risk for head injury. IF YOUR SYMPTOMS WORSEN OR NEW SYMPTOMS DEVELOP, OR YOU HAVE CONCERNS ABOUT YOUR CONDITION; OR IF YOUR CONDITION WORSENS WHILE YOU ARE WAITING FOR YOUR FOLLOW UP TONY OINTMENT; EITHER CONTACT YOUR PRIMARY CARE DOCTOR, THE PHYSICIAN WHOSE NAME AND NUMBER YOU WERE GIVEN, OR RETURN TO THE ED IMMEDIATELY. Scripts Lamotrigine (LAMICTAL) 200 Mg Tablet 1 TAB PO BID for seizure prophylaxis, #60 TAB 2 Refills Prov: SHARMIN KAISER MD 11/05/20 SHARMIN KAISER MD Nov 05, 2020 15:51
[2020-11-05 16:05] VITALS: BP 143/99
== END 2020-11-05 16:05 | disposition home or self-care (01) ==
LOC: ER 13:47
DX: G40.909 Epilepsy, unspecified, not intractable, without status epilepticus (principal); F31.9 Bipolar disorder, unspecified; E11.9 Type 2 diabetes mellitus without complications; F20.9 Schizophrenia, unspecified; F17.210 Nicotine dependence, cigarettes, uncomplicated
CPT/HCPCS: 36415; 80048; 84703; 85025; 93005; 96365; 99284; J1953